=== PATIENT | female | born 1950 | race Caucasian/White ===

== ENCOUNTER → 2016-11-10 | Outpatient (CLI) | payer MEDICARE | END | disposition home or self-care (01) | LOC: ROC 13:41 | PROVIDERS: ATTEND Radiology Radiation Oncology | DX: C20 Malignant neoplasm of rectum (principal) | CPT/HCPCS: G0463 ==

== ENCOUNTER → 2016-11-27 | Outpatient (CLI) | payer MEDICARE ==
[~2016-11-27] MED LIST: OMNIPAQUE 350 MG/ML, 100ML BOTTLE ONE
== END | disposition home or self-care (01) ==
LOC: CFH 13:11
PROVIDERS: ATTEND Radiology Radiation Oncology
DX: C20 Malignant neoplasm of rectum (principal); K62.89 Other specified diseases of anus and rectum; N32.89 Other specified disorders of bladder; I70.0 Atherosclerosis of aorta; D25.9 Leiomyoma of uterus, unspecified; M85.88 Other specified disorders of bone density and structure, other site; Z92.3 Personal history of irradiation; Z92.21 Personal history of antineoplastic chemotherapy
CPT/HCPCS: 71260; 74177; Q9967

== ENCOUNTER → 2017-01-28 | Outpatient (CLI) | payer MEDICARE | END | disposition home or self-care (01) | LOC: ROC 14:01 | PROVIDERS: ATTEND Radiology Radiation Oncology | DX: C20 Malignant neoplasm of rectum (principal) | CPT/HCPCS: G0463 ==

== ENCOUNTER → 2017-03-13 | Outpatient (CLI) | payer MEDICARE | END | disposition home or self-care (01) | LOC: ROC 13:27 | PROVIDERS: ATTEND Radiology Radiation Oncology | DX: C20 Malignant neoplasm of rectum (principal) | CPT/HCPCS: G0463 ==

== ENCOUNTER → 2017-09-07 | Outpatient (CLI) | payer MEDICARE | END | disposition home or self-care (01) | LOC: ROC 11:40 | PROVIDERS: ATTEND Radiology Radiation Oncology | DX: C20 Malignant neoplasm of rectum (principal) | CPT/HCPCS: G0463 ==

== ENCOUNTER → 2017-11-12 | Outpatient (CLI) | payer MEDICARE ==
[2017-11-12 14:26] LABS: BASOPHILS # (AUTO) 0.03 x10^3/uL (0-0.1); BASOPHILS % (AUTO) 1 % (0-1); EOSINOPHILS % (AUTO) 3 % (1-7); LYMPHOCYTES # (AUTO) 0.64 x10^3/uL (1-3.4); LYMPHOCYTES % (AUTO) 18 % (22-44); MD NO; MEAN CORPUSCULAR HEMOGLOBIN 33.5 pg (27.0-34.8); MEAN CORPUSCULAR HGB CONC 33.5 g/dL (32.4-35.8); MEAN CORPUSCULAR VOLUME 100.2 fL (80-100); MEAN PLATELET VOLUME 7.4 fL (7.4-10.4); MONOCYTES # (AUTO) 0.37 x10^3/uL (0.2-0.8); MONOCYTES % (AUTO) 10 % (2-9); NEUTROPHILS # (AUTO) 2.49 x10^3/uL (1.8-6.8); NEUTROPHILS % (AUTO) 69 % (42-75); PLATELET COUNT 199 x10^3/uL (130-400); RED BLOOD COUNT 3.75 x10^6/uL (3.82-5.3); RED CELL DISTRIBUTION WIDTH 12.9 % (9.6-15.2)
[2017-11-12 14:37] LABS: ALANINE AMINOTRANSFERASE 30 U/L (12-78); ALBUMIN 3.8 g/dL (3.4-5.0); ANION GAP 6 mmol/L (5-15); CALCIUM 8.9 mg/dL (8.5-10.1); CHLORIDE 108 mmol/L (98-107); CREATININE 0.66 mg/dL (0.55-1.02)
[2017-11-12 14:41] LABS: ALKALINE PHOSPHATASE 272 U/L (45-117); BILIRUBIN,TOTAL 0.5 mg/dL (0.2-1.0); TOTAL PROTEIN 7.2 g/dL (6.4-8.2)
== END ==
LOC: PETCFH 10:21
PROVIDERS: ATTEND Family Medicine
DX: Z01.812 Encounter for preprocedural laboratory examination (principal); Z85.038 Personal history of other malignant neoplasm of large intestine
CPT/HCPCS: 36415; 78315; 80053; 82378; 85025; A9503

== ENCOUNTER → 2017-12-14 | Outpatient (CLI) | payer MEDICARE | LOC: ROC 08:42 | PROVIDERS: ATTEND Radiology Radiation Oncology | DX: Z08 Encounter for follow-up examination after completed treatment for malignant neoplasm (principal); C20 Malignant neoplasm of rectum; I89.0 Lymphedema, not elsewhere classified; Z92.3 Personal history of irradiation | CPT/HCPCS: G0463 ==

== ENCOUNTER → 2018-03-22 | Outpatient (CLI) | payer MEDICARE | END | disposition home or self-care (01) | LOC: ROC 08:50 | PROVIDERS: ATTEND Radiology Radiation Oncology | DX: C20 Malignant neoplasm of rectum (principal) | CPT/HCPCS: G0463 ==

== ENCOUNTER → 2019-11-07 | Outpatient (CLI) | payer MEDICARE | END | disposition home or self-care (01) | LOC: CFH 11:09 | PROVIDERS: ATTEND Specialist | DX: C20 Malignant neoplasm of rectum (principal); K43.5 Parastomal hernia without obstruction or gangrene; Z93.3 Colostomy status | CPT/HCPCS: 71260; 74177; Q9967 ==

== ENCOUNTER 2019-11-25 18:00 | Inpatient (IN) | payer MEDICARE ==
[~2019-11-25] VITALS: Ht 165.1 cm; Wt 81.9 kg
--- NOTE | 2019-11-25 18:26 | NUR ---
THIS IS A 69 YO F BROUGHT IN FROM [facility] W/ C/O RT HIP FX. PT REPORTS GLF X3 WEEKS AGO AND X1 WEEK AGO. PT AMBULATED TO BR W/ A STEADY GAIT. PT IS HYPERTENSIVE, OTHER VS WDL. PT REPORTS LAST MEAL WAS AT 1200, AND DRANK WATER AT 1400. PT RESTING ON [employer] W/ CALL LIGHT IN REACH AND SIDE RAILS UP X2.
[2019-11-25] MEDS ORDERED: PLEASE ENTER ALLERGIES MC SCH (18:30)
[2019-11-25] MEDS ORDERED: SODIUM CHLORIDE FLUSH 10ML SYR IVF ONE (18:30)
--- NOTE | 2019-11-25 18:30 | NUR ---
LAB IN ROOM.
[2019-11-25 18:48] LABS: BASOPHILS # (AUTO) 0.05 x10^3/uL (0-0.1); BASOPHILS % (AUTO) 1 % (0-1); EOSINOPHILS # (AUTO) 0.18 x10^3/uL (0-0.4); EOSINOPHILS % (AUTO) 4 % (1-7); LYMPHOCYTES % (AUTO) 19 % (22-44); MD NO; MEAN CORPUSCULAR HEMOGLOBIN 32.5 pg (27.0-34.8); MEAN CORPUSCULAR HGB CONC 33.9 g/dL (32.4-35.8); MEAN PLATELET VOLUME 7.3 fL (7.4-10.4); MONOCYTES # (AUTO) 0.38 x10^3/uL (0.2-0.8); MONOCYTES % (AUTO) 8 % (2-9); NEUTROPHILS % (AUTO) 68 % (42-75); PLATELET COUNT 236 x10^3/uL (130-400); RED BLOOD COUNT 4.18 x10^6/uL (3.82-5.3); RED CELL DISTRIBUTION WIDTH 13.4 % (9.6-15.2)
[2019-11-25] MEDS ORDERED: hydrALAzine 20 MG/ML, 1ML ONE ×2 (18:56→21:23)
[2019-11-25 18:57] LABS: ANION GAP 8 mmol/L (5-15); CALCIUM 9.6 mg/dL (8.5-10.1); CHLORIDE 109 mmol/L (98-107)
[2019-11-25] MEDS ORDERED: hydrALAzine 20 MG/ML, 1ML IV PRN ×2 (19:00→20:30)
--- NOTE | 2019-11-25 19:00 | NUR ---
PT MEDICATED PER EMAR.
--- NOTE | 2019-11-25 19:09 | NUR ---
PT REPORTS NO HOME MEDS.
--- NOTE | 2019-11-25 19:25 | NUR ---
PT BP NOW 149/86 AFTER MEDS.
--- NOTE | 2019-11-25 19:33 | NUR ---
PT TAKEN TO OR.
--- NOTE | 2019-11-25 19:34 | NUR ---
REPORT GIVEN TO ARNAUD GALEANA. PT TAKEN TO SURGERY.
[2019-11-25] MEDS ORDERED: FENTANYL PF 250 MCG/5ML ONE (19:57)
[2019-11-25] MEDS ORDERED: CEFAZOLIN 1,000 MG ONE (19:59)
[2019-11-25] MEDS ORDERED: DEXAMETHASONE 4 MG/ML, 1ML ONE (19:59)
[2019-11-25] MEDS ORDERED: ONDANSETRON 2MG/ML, 2ML ONE (19:59)
[2019-11-25] MEDS ORDERED: SUCCINYLCHOLINE 20 MG/ML, 10ML ONE ×2 (19:59→20:31)
[2019-11-25] MEDS ORDERED: KETOROLAC 30 MG/1 ML ONE (20:06)
[2019-11-25] MEDS ORDERED: OXYcodone 5 MG/5 ML ORAL.SOL UDC PO PRN (20:30)
[2019-11-25] MEDS ORDERED: MEPERIDINE/PF 25MG/ML,1ML IVPush PRN (20:30)
[2019-11-25] MEDS ORDERED: LABETALOL 5MG/ML, 20ML IV PRN (20:30)
[2019-11-25] MEDS ORDERED: ONDANSETRON 2MG/ML, 2ML IV PRN (20:30)
[2019-11-25] MEDS ORDERED: PROMETHAZINE 25 MG/ML, 1ML IV PRN (20:30)
[2019-11-25] MEDS ORDERED: ACETAMINOPHEN 325 MG TABLET PO PRN ×3 (20:30→23:00)
[2019-11-25] MEDS ORDERED: EPHEDRINE 50 MG/ML, 1ML IVPush PRN (20:30)
[2019-11-25] MEDS ORDERED: PROPOFOL 10 MG/ML, 20ML ONE (20:31)
[2019-11-25] MEDS ORDERED: LIDOCAINE-MPF 2% ,5ML ONE (20:31)
[2019-11-25] MEDS ORDERED: FENTANYL PF 100 MCG/2ML ONE (20:48)
[2019-11-25] MEDS ORDERED: HYDROmorphone 1 MG/ML, 1ML INJ ONE ×3 (20:49→21:33)
[2019-11-25] MEDS ORDERED: OXYcodone 5 MG/5 ML ORAL.SOL UDC ONE (20:49)
[2019-11-25] MEDS: FENTANYL PF 100 MCG/2ML IV PRN ×2 (20:52→20:59)
[2019-11-25] MEDS: HYDROmorphone 2 MG/ML, 1ML IVPush PRN ×4 (21:04→21:19)
[2019-11-25] MEDS ORDERED: MEPERIDINE/PF 25MG/ML,1ML ONE (21:23)
[2019-11-25 22:58] VITALS: BP 130/66
[2019-11-25] MEDS ORDERED: POLYETHYLENE GLYCOL 17 GM PACKET PO PRN (23:00)
[2019-11-25] MEDS ORDERED: ONDANSETRON 2MG/ML, 2ML IVPush PRN (23:00)
[2019-11-25] MEDS ORDERED: hydrALAzine 20 MG/ML, 1ML IVPush PRN (23:00)
[2019-11-25] MEDS ORDERED: ONDANSETRON ODT 4 MG PO PRN (23:00)
[2019-11-25] MEDS ORDERED: ENALAPRILAT 1.25 MG/ML, 2ML IVPush PRN (23:00)
[2019-11-25] MEDS ORDERED: OXYcodone IR 5MG TABLET PO PRN (23:00)
[2019-11-25] MEDS ORDERED: METHOCARBAMOL 500 MG TABLET PO PRN (23:00)
[2019-11-26 03:43] VITALS: BP 114/72
[2019-11-26] MEDS: CEFAZOLIN PMX 2GM/50ML 50 ML IVPB SCH ×3 (04:24→20:36)
[2019-11-26] MEDS: KETOROLAC 30 MG/1 ML IVPush SCH ×3 (04:25→20:36)
[2019-11-26] MEDS: HYDROcodone/APAP 5/325 TABLET PO PRN ×4 (04:33→22:41)
[2019-11-26 04:56] LABS: ANION GAP 4 mmol/L (5-15); CALCIUM 8.8 mg/dL (8.5-10.1); CHLORIDE 109 mmol/L (98-107); CREATININE 0.69 mg/dL (0.55-1.02)
[2019-11-26] MEDS ORDERED: KETOROLAC 30 MG/1 ML IVPush SCH (05:00)
[2019-11-26 05:08] LABS: BASOPHILS # (AUTO) 0.03 x10^3/uL (0-0.1); BASOPHILS % (AUTO) 0 % (0-1); EOSINOPHILS # (AUTO) 0.01 x10^3/uL (0-0.4); EOSINOPHILS % (AUTO) 0 % (1-7); LYMPHOCYTES # (AUTO) 0.46 x10^3/uL (1-3.4); LYMPHOCYTES % (AUTO) 5 % (22-44); MD NO; MEAN CORPUSCULAR HEMOGLOBIN 33.1 pg (27.0-34.8); MEAN CORPUSCULAR HGB CONC 33.6 g/dL (32.4-35.8); MEAN CORPUSCULAR VOLUME 98.5 fL (80-100); MEAN PLATELET VOLUME 7.4 fL (7.4-10.4); MONOCYTES # (AUTO) 0.28 x10^3/uL (0.2-0.8); MONOCYTES % (AUTO) 3 % (2-9); NEUTROPHILS # (AUTO) 8.14 x10^3/uL (1.8-6.8); NEUTROPHILS % (AUTO) 91 % (42-75); PLATELET COUNT 232 x10^3/uL (130-400); RED BLOOD COUNT 3.59 x10^6/uL (3.82-5.3); RED CELL DISTRIBUTION WIDTH 13.6 % (9.6-15.2)
[2019-11-26 07:56] VITALS: BP 106/60
[2019-11-26] MEDS: DOCUSATE 100 MG CAPSULE PO SCH ×2 (08:47→20:36)
[2019-11-26] MEDS: ENOXAPARIN 40 MG/0.4 ML SQ SCH (08:47)
[2019-11-26] MEDS ORDERED: ENOXAPARIN 40 MG/0.4 ML SQ SCH (09:00)
[2019-11-26 14:00] VITALS: BP 101/58
[2019-11-26 20:42] VITALS: BP 128/63
[2019-11-27] MEDS: HYDROcodone/APAP 5/325 TABLET PO PRN ×4 (02:37→13:36)
[2019-11-27 02:39] VITALS: BP 136/57
[2019-11-27 07:02] VITALS: BP 129/69
[2019-11-27] MEDS: DOCUSATE 100 MG CAPSULE PO SCH (08:17)
[2019-11-27] MEDS: ENOXAPARIN 40 MG/0.4 ML SQ SCH (08:18)
[2019-11-27] MEDS ORDERED: TRAM50TA2 PO ×2 (12:25→13:37)
[2019-11-27] MEDS ORDERED: ASPI325T17 PO (12:25)
[2019-11-27 14:35] VITALS: BP 140/75
== END 2019-11-27 15:41 | disposition home or self-care (01) | DRG 482 ==
LOC: ED 18:50 → EDIP 19:06 → 4NE 22:34
PROVIDERS: ADMIT Internal Medicine; ATTEND Internal Medicine
PROC: 0QS606Z Reposition Right Upper Femur with Intramedullary Internal Fixation Device, Open Approach (ICD-10-PCS; principal; 2019-11-25 20:00)
DX: S72.141A Displaced intertrochanteric fracture of right femur, initial encounter for closed fracture (principal); I10 Essential (primary) hypertension; Z66 Do not resuscitate; Z80.3 Family history of malignant neoplasm of breast; Z82.49 Family history of ischemic heart disease and other diseases of the circulatory system; Z83.3 Family history of diabetes mellitus; Z85.038 Personal history of other malignant neoplasm of large intestine; Z87.81 Personal history of (healed) traumatic fracture; Z87.891 Personal history of nicotine dependence; Z92.3 Personal history of irradiation; Z93.3 Colostomy status; W18.39XA Other fall on same level, initial encounter; Y93.89 Activity, other specified; Y92.89 Other specified places as the place of occurrence of the external cause; Y99.9 Unspecified external cause status
CPT/HCPCS: 36415; 76000; 80048; 82040; 85025; 96374; 96375; 99285; C1713; G0378; J0690; J1100; J1170; J1650; J1885; J2405; J2704; J3010; J0330; J0360; J2175

== ENCOUNTER → 2020-07-10 | Outpatient (CLI) | payer MEDICARE ==
[~2020-07-10] MED LIST changes: +ASPI325T17 PO; +TRAM50TA2 PO
== END | disposition home or self-care (01) ==
LOC: CFH 12:51
PROVIDERS: ATTEND Specialist
DX: C20 Malignant neoplasm of rectum (principal)
CPT/HCPCS: 71260; 74177; Q9967